=== PATIENT | female | born 1975 | race Caucasian/White ===

== ENCOUNTER 2023-09-23 11:13 | Emergency (ER) | payer MEDICARE, MEDICAID, SELFPAY ==
[2023-09-23 11:32] VITALS: BP 150/92; PULSE 88; RESP 18; TEMP 36.6; O2SAT 97; BMI 33.9
--- NOTE | 2023-09-23 12:03 | ED_ITS ---
HPI - General Adult General: Chief complaint: General Medical Stated complaint: body aches, fever, D Time Seen by Provider: 09/23/23 11:39 Source: patient Mode of arrival: ambulatory Limitations: no limitations History of Present Illness: Patient made her way to the emergency department today because of 2-3 perhaps 4 days history of body aches subjective fevers and loose stools and decreased appetite. She states that symptoms seem to be about as they were upon onset. She states she really does not have much appetite but is drinking fluids and producing urine. She is using [id number] acetaminophen for body aches. She states her grandchildren have had strep as well as the flu over the past 10 days or so. She states she has not been immunized against flu or COVID this year. She states she is able to swallow both liquids and solids okay just has no appetite. She denies cough shortness of breath vomiting. She had a hysterectomy and does use approximately 1 pack of cigarettes daily. Associated symptoms: Deny chest pain, dyspnea, headache(s), nausea, rash, palpitations or vomiting Review of Systems Const: Reports: fever(s), chills and body aches Eyes: Denies: change in vision or eye discharge ENMT: Reports: throat pain; Denies: nasal discharge, nasal congestion or nasal obstruction Card: Denies: chest pain, palpitations, irregular heart rhythm or edema Resp: Denies: dyspnea, productive cough or non-productive cough GI: Reports: diarrhea; Denies: abdominal pain, nausea, vomiting, hematochezia or melena : Denies: flank pain, difficulty voiding, dysuria or urinary frequency Musc: Denies: neck pain, back pain, extremity pain or extremity swelling Skin/Breast: Denies: rash Neuro: Denies: headache(s), numbness in extremities or weakness in extremities Physical Exam Narrative: EXAM NARRATIVE: She appears to be in no acute distress she is comfortable and cooperative. She answers questions appropriately in complete sentences. Const: COMMON NORMALS: no acute distress and patient oriented x3 GENERAL APPEARANCE: cooperative and comfortable NUTRITIONAL APPEARANCE: overweight HENMT: COMMON NORMALS: normocephalic, EAC's normal, TM's normal bilaterally, Normal nasal mucous membranes and turbinates present, moist oral mucous membranes and oropharynx normal HEAD & SCALP: normocephalic FACE & SINUS: normal facial exam and face symmetric NOSE: Normal nasal mucous membranes and turbinates present EXTERNAL AUDITORY CANAL: EAC's normal TYMPANIC MEMBRANE: TM's normal bilaterally Eye: COMMON NORMALS: Equal, round and reactive pupils present, EOMs intact bilaterally and conjunctivae normal CONJUNCTIVA: Yes conjunctivae normal PUPIL: Yes Equal, round and reactive pupils present Neck/C-Spine: COMMON NORMALS: full ROM, no lymphadenopathy and supple Chest: COMMONS NORMALS: normal inspection of the chest Resp: COMMON NORMALS: normal respiratory effort, No retractions, No use of accessory muscles and clear to auscultation bilaterally AUSCULTATION: clear to auscultation bilaterally Cardio: COMMON NORMALS: regular rate, regular rhythm, No murmurs present (Cardio) and Peripheral pulses 2+ throughout RATE: regular rate RHYTHM: regular rhythm PERIPHERAL PULSES: Peripheral pulses 2+ throughout GI: COMMON NORMALS: Normal to inspection, nondistended, normoactive bowel sounds present, Soft to palpation, non-tender and no masses PALPATION: Yes Soft to palpation : COMMON NORMALS: Yes no CVA tenderness BLADDER/KIDNEY EXAM: Yes no CVA tenderness Back/Pelvis: COMMON NORMALS: no CVA tenderness, thoracic and lumbar spine normal to inspection, no thoracic nor lumbar tenderness and thoraco-lumbar ROM normal Extremity: COMMON NORMALS: normal to inspection, full ROM, capillary refill normal, no calf tenderness and no pedal edema Neuro: COMMON NORMALS: patient oriented x3, moves all extremities, no focal mo tor deficits, no sensory deficits noted and gait normal Skin: COMMON NORMALS: no rashes or lesions noted, turgor normal and no jaundice GENERAL SKIN EXAM: no rashes or lesions noted and turgor normal Course Reevaluation(s): Reevaluation #1: I shared results of the testing in the emergency department at this time without any indication of influenza, COVID, strep. She is drinking fluids and appears to be comfortable and we discussed expected course and return precautions which she acknowledged. Time: 13:08 Vital Signs: Vital signs: Vital Signs Temperature 97.9 F 09/23/23 11:32 Pulse Rate 88 09/23/23 11:32 Respiratory Rate 18 09/23/23 11:32 Blood Pressure 150/92 09/23/23 12:05 Pulse Oximetry 97 09/23/23 11:32 Oxygen Delivery Me thod Room Air 09/23/23 11:32 MDM - General Adult Medical Decision Making This patient presented to our emergency department because of several days of body aches malaise decreased appetite, decreased taste and loose stools. She had been exposed to grandchildren who have had various illnesses to include strep. She has been drinking fluids but not eating as normal. She has had no other contributory history such as productive cough, difficulty breathing, abdominal pain, vomiting etc. Clinical exam was reassuring and that she was alert and cooperative. She had moist mucous membranes without any focal findings on her clinical examination that suggest stigmata of serious illness. Testing for COVID influenza and strep were obtained which were all negative and reassuring. Without any other specific symptoms at this time certainly is is consistent with a viral syndrome. We discussed home care, adequate hydration, other home therapy and also return precautions. Stable at this time without any evidence of ongoing emergency medical condition that requires further stabilization and/or ED care Lab Data I reviewed the patient's lab results. Laboratory Results Influenza Type A Ag negative (Negative) 09/23/23 12:01 Influenza Type B Ag negative (Negative) 09/23/23 12:01 SARS-CoV-2 Ag (Rapid) negative (Negative) 09/23/23 12:01 Group A Strep Rapid Negative (Negative) 09/23/23 12:01 No radiology studies performed this visit Discharge Plan Discharge Patient Disposition: Home Clinical Impression: Acute viral syndrome Condition: Stable Prescriptions: No Action ibuprofen 800 mg tablet 800 mg PO TID PRN (Reason: Pain) omeprazole 40 mg capsule,delayed release(DR/EC) 40 mg PO DAILY baclofen 20 mg tablet 20 mg PO TID fluticasone propionate 50 mcg/actuation spray,suspension 2 spray INTRANASAL DAILY rosuvastatin 20 mg tablet 20 mg PO QPM metoprolol tartrate 25 mg tablet 25 mg PO DAILY Discharge Orders: Discharge ED (Routine); Ordered 09/23/23 Ordered By: Pablo Lopez Discharge Diet: Advance as tolerated Discharge Activity: Increase activity as tolerated Patient Instructions: Opioid Safety, Pain Management Activity Restrictions/Additional Instructions: As we discussed all your testing that was performed in the emergency department were reassuring. You likely have one of the other viruses that cause body aches and fever and your other symptoms however we would expect that to gradually improve over the next 2 to 3 days. It is important that you drink adequate amount of fluids to include sports drinks, water, apple juice with water etc. Try to avoid caffeinated beverages as sometimes they can exacerbate any loose stools. It is okay to take your [id number] antidiarrheal agent for the next 2 days. If you have persistent diarrhea develop blood in your diarrhea, start developing new symptoms such as increased abdominal pain inability eat or drink or any other concerns return to the emergency department immediately for reevaluation. Coding Level of Care Code ED Nutritional Assistant for Urszula Nevarez
[2023-09-23 12:05] VITALS: BP 150/92
[2023-09-23 12:36] LABS: Rapid Strep A Test Negative (Negative)
[2023-09-23 12:41] LABS: Influenza A by IFA negative (Negative); Influenza B by IFA negative (Negative); SARS Covid-2 Antigen negative (Negative)
[2023-09-23 13:15] VITALS: BP 150/92; PULSE 71; O2SAT 98
== END 2023-09-23 13:17 | disposition home or self-care (01) ==
PROVIDERS: Emergency Provider Emergency Medicine
DX: B34.9 Viral infection, unspecified (principal); Z11.52 Encounter for screening for COVID-19
CPT/HCPCS: 87081; 87426; 87804; 87880; 99283

== ENCOUNTER → 2023-11-24 08:29 | Outpatient (BNVA) | payer MEDICARE, MEDICAID, SELFPAY | PROVIDERS: PCP Family Medicine; Visit Provider Family Medicine | DX: I10 Essential (primary) hypertension; Z13.9 Encounter for screening, unspecified | CPT/HCPCS: 80053; 80061; 83036; 84439; 84443; 85025 ==

== ENCOUNTER → 2024-02-15 08:35 | Outpatient (BNVA) | payer MEDICARE, MEDICAID, SELFPAY | PROVIDERS: PCP Family Medicine; Referring Provider Family Medicine; Visit Provider Physician Assistant | DX: M25.511 Pain in right shoulder (principal); G89.29 Other chronic pain; M12.811 Other specific arthropathies, not elsewhere classified, right shoulder | CPT/HCPCS: 20610; 73030; 99203; J3301 ==

== ENCOUNTER 2024-02-28 12:17 | Emergency (ER) | payer MEDICARE, MEDICAID, SELFPAY ==
[2024-02-28 12:35] VITALS: BP 119/75; PULSE 69; RESP 16; TEMP 36.7; O2SAT 98
--- NOTE | 2024-02-28 12:54 | XR_ITS ---
WS: [id number] Exam: XR shoulder RT min 2V* [id number] Date/Time of Exam: 02/28/2024 12:54 PM Reason For Exam: pain No fracture or dislocation. Soft tissues are unremarkable. Slight DJD at the AC joint. XR/XR shoulder RT min 2V* [id number] IMPRESSION: 1. Minimal AC joint DJD otherwise negative RIGHT shoulder.
--- NOTE | 2024-02-28 14:46 | W.ED.EXTPRO ---
HPI - Extremity Problem General: Chief complaint: Extremity Injury, Upper Stated complaint: pain in right shoulder Time Seen by Provider: 02/28/24 14:44 Source: patient Mode of arrival: ambulatory Limitations: no limitations History of Present Illness: Patient is a 49-year-old female here in the emergency department for evaluation of worsening right shoulder pain. Patient states 5 years ago she injured this shoulder and subsequently had an MRI which showed a rotator cuff tear. She states she never followed up following this imaging and has continued to have intermittent issues with the shoulder since. Over the past several weeks she has had worsening pain thus was seen by [facility] orthopedics on 02/14. She had a steroid injection into the shoulder which she feels has been non-beneficial. She is continuing to do the home PT exercises she was recommended. She has been taking OTC Tylenol, Ibuprofen, as well as various topical rubs without any form of relief. MD Complaint: joint pain Onset (ago): week(s) Pain Consistency: constant Location: right and upper extremity Quality: burning Radiation: none Relieving factors: nothing and immobilization Exacerbating factors: range of motion Associated symptoms: Reports no associated symptoms; Deny chest pain or fever(s) Context: other (known rotator cuff arthropathy) Review of Systems Const: Denies: fever(s), chills, fatigue or malaise Card: Denies: chest pain Resp: Denies: dyspnea Musc: Reports: joint pain (R shoulder); Denies: neck pain, back pain, extremity pain, extremity swelling, joint swelling, joint redness or joint warmth Neuro: Denies: numbness in extremities, weakness in extremities or sensory changes [facility] ED PFSH: Medical History Schizoaffective disorder Psychiatric care Chronic migraine Tobacco use disorder, severe, dependence Obesity, Class II, BMI 35-39.9 Hypertension Depression Anxiety Bipolar 2 disorder PTSD (post-traumatic stress disorder) Multiple personalities Bone spur History of gallstones Intermittent explosive disorder Surgical History History of amputation of toe H/O: hysterectomy History of cholecystectomy Family History Mother Heart attack Father Aneurysm brain Social History (Reviewed 02/28/24 @ 15:04 by KEZIA Patel Smoking and tobacco/nicotine status: current every day tobacco/nicotine user cigarettes Packs smoked per day: 1.5 Years cigarettes smoked: 35 [ Other cigarette details: 70PY] Alcohol intake: former Year of sobriety/quit date alcohol: 10+ Substance/Drug Use: never Adopted: No Caregiver/support person: No Lives independently: Yes service: No Current occupational exposures/hazards: No Do you think of yourself as: Straight/Heterosexual Current gender identity: Female Female Reproductive History: Spontaneous abortions: No Physical Exam Const: COMMON NORMALS: no acute distress, patient oriented x3, no limitations, alert and well nourished Back/Pelvis: COMMON NORMALS: thoracic and lumbar spine normal to inspection Extremity: COMMON NORMALS: normal to inspection, capillary refill normal, no joint enlargement, no clubbing, cyanosis or edema and no pedal edema GENERAL: Yes normal exam except as noted RIGHT UPPER EXTREMITY: Yes shoulder joint Right shoulder: Yes Right shoulder joint inspection exam (normal gross inspection ), Yes Right shoulder joint ROM exam (limited secondary to pain), Yes Right shoulder joint neurovascular exam (normal) and Yes Right shoulder joint other findings (no concern for septic arthritis following intra-articular injection) Neuro: COMMON NORMALS: patient oriented x3, moves all extremities, no focal motor deficits and no sensory deficits noted SENSORIUM/ORIENTATION: Yes alert Course Vital Signs: Vital signs: Vital Signs Temperature 98.1 F 02/28/24 12:35 Pulse Rate 71 02/28/24 14:56 Respiratory Rate 19 H 02/28/24 14:56 Blood Pressure 125/95 02/28/24 14:56 Pulse Oximetry 98 02/28/24 14:56 Oxygen Delivery Me thod Room Air 02/28/24 14:56 MDM - Extremity (Nontraumatic) Medical Decision Making Patient has seemingly done everything to help with her discomfort including seeing the orthopedic dentist, home physical therapy exercises, intra-articular steroid injections, OTC analgesics as well as topical analgesics all without relief. Patient has an allergy to codeine. Discussed tramadol however she states she has been on this previously without any relief. I was agreeable to a small prescription of hydrocodone that she can use sparingly for severe pain. Told her any other form of pain management needs to be handled by her orthopedic team or her primary care provider. She is agreeable to this. XR of the shoulder was ordered from the waiting room showing AC joint DJD. Medical Records I reviewed the patient's medical records. Lab Data Radiology Impressions Shoulder X-Ray 02/28/24 12:54 IMPRESSION: 1. Minimal AC joint DJD otherwise negative RIGHT shoulder. All radiology interpretation(s) finalized by discharge Discharge Plan Discharge Patient Disposition: Home Clinical Impression: Rotator cuff arthropathy of right shoulder Condition: Stable Prescriptions: New hydrocodone-acetaminophen 5-325 mg tablet 1 tab PO Q6H PRN (Reason: pain) Qty: 14 0RF No Action albuterol sulfate 90 mcg/actuation HFA aerosol inhaler 2 inh inhalation Q4H PRN (Reason: shortness of breath or wheezing) Qty: 6.7 0RF propranolol 20 mg tablet 20 mg PO BID Qty: 180 1RF omeprazole 40 mg capsule,delayed release(DR/EC) 40 mg PO DAILY Qty: 90 3RF losartan 100 mg tablet 100 mg PO DAILY 30 Days Qty: 90 3RF ibuprofen 800 mg tablet 800 mg PO TID PRN (Reason: Pain) Qty: 180 1RF escitalopram oxalate 10 mg tablet 10 mg PO DAILY Qty: 90 3RF methocarbamol 750 mg tablet 750 mg PO TID Qty: 180 2RF mirtazapine 15 mg tablet 15 mg PO DAILY Qty: 30 2RF doxycycline hyclate 100 mg tablet 100 mg PO BID 10 Days Qty: 20 0RF eszopiclone [Lunesta] 3 mg tablet 3 mg PO .at bedtime Qty: 30 5RF epinephrine 0.3 mg/0.3 mL auto-injector See Rx Instructions .ROUTE .COMPLEX Qty: 2 0RF Dose Instruction: INJECT 0.3 MG (0.3 ML) INTRAMUSCULARLY EVERY 4 HOURS NEEDED FOR ANAPHYLAXIS Rx Instructions: INJECT 0.3 MG (0.3 ML) INTRAMUSCULARLY EVERY 4 HOURS NEEDED FOR ANAPHYLAXIS Discharge Orders: Discharge ED (Routine); Ordered 02/28/24 Ordered By: Kayla Armando Referrals: Sachin Helms DO [Primary Care Provider] - Patient Instructions: Opioid Safety, Pain Management Activity Restrictions/Additional Instructions: As we discussed, you need to follow-up with your orthopedic dentist or primary care provider for further treatment of your chronic pain in your right shoulder. Coding Level of Care Code ED [employer] for Urszula Nevarez
[2024-02-28 14:56] VITALS: BP 125/95; PULSE 71; RESP 19; O2SAT 98
== END 2024-02-28 15:07 | disposition home or self-care (01) ==
PROVIDERS: Emergency Provider Physician Assistant; PCP Family Medicine
DX: M12.811 Other specific arthropathies, not elsewhere classified, right shoulder (principal); F17.210 Nicotine dependence, cigarettes, uncomplicated; I10 Essential (primary) hypertension
CPT/HCPCS: 73030; 99283

== ENCOUNTER → 2024-03-22 08:52 | Outpatient (BNVA) | payer MEDICARE, MEDICAID, SELFPAY | PROVIDERS: PCP Family Medicine; Visit Provider Physician Assistant | DX: M12.811 Other specific arthropathies, not elsewhere classified, right shoulder (principal) | CPT/HCPCS: 99213 ==

== ENCOUNTER 2024-04-17 13:35 | Outpatient (CLI) | payer MEDICARE, MEDICAID, SELFPAY ==
--- NOTE | 2024-04-17 15:15 | MR_ITS ---
WS: [id number] MRI RIGHT SHOULDER HISTORY: Right shoulder pain COMPARISON: Radiograph 02/28/2024 TECHNIQUE: Multiplanar sequences of the shoulder joint are submitted. Moderate AC joint arthritis. AC joint is narrowed with osteophytes. Mild encroachment upon the supras pinatus tendon. Moderate subacromial impingement. Small osteophyte along the distal undersurface of t he acromion contacting and deforming the supraspinatus tendon directly over the humeral head. Biceps tendon in normal position. No os acromion. No significant muscle atrophy. There is increased T2 signal along the bursal surface of the distal wyman praspinatus tendon. There is fluid extending interstitially along the tendon sheath over several cent imeters. No articular surface tear is identified. The bursal surface tear is just distal to the acrom ial impingement. Mild cortical humeral interval narrowing. No subacromial tendon or infraspinatus ten don tear. Teres minor normal. No labral tear is seen. MR/MR shoulder RT wo con* [id number] IMPRESSION: 1. Bursal surface tear of the distal supraspinatus tendon. The tear extends in terstitial with fluid along the supraspinatus tendon. The bursal surface tear i s just distal to the subacromial impingement site. 2. No rotator cuff muscle atrophy or edema. 3. Moderate AC joint arthritis. 4. Moderate subacromial impingement.
== END 2024-04-17 13:36 | disposition home or self-care (01) ==
LOC: RAD 13:36
PROVIDERS: PCP Family Medicine; Visit Provider Physician Assistant
DX: S46.011A Strain of muscle(s) and tendon(s) of the rotator cuff of right shoulder, initial encounter (principal); X58.XXXA Exposure to other specified factors, initial encounter; M19.011 Primary osteoarthritis, right shoulder; M25.711 Osteophyte, right shoulder; M75.41 Impingement syndrome of right shoulder
CPT/HCPCS: 73221

== ENCOUNTER → 2024-05-14 09:04 | Outpatient (BNVA) | payer MEDICARE, OTHER, SELFPAY | PROVIDERS: PCP Family Medicine; Visit Provider Student in an Organized Health Care Education/Training Program | DX: M24.611 Ankylosis, right shoulder (principal); M75.21 Bicipital tendinitis, right shoulder; M75.41 Impingement syndrome of right shoulder; M19.011 Primary osteoarthritis, right shoulder | CPT/HCPCS: 99214 ==

== ENCOUNTER 2024-06-05 11:23 | Day surgery (SDC) | payer MEDICARE, MEDICAID, SELFPAY ==
[2024-06-05] VITALS (7 sets, daily range): BP systolic 113–157; BP diastolic 69–93; PULSE 74–100; RESP 13–24; TEMP 36.2–36.8; O2SAT 92–100; BMI 38.7
[2024-06-05] MEDS: sodium chloride 0.9% 1,000 ML 30 ML IV (13:03)
[2024-06-05] MEDS: acetaminophen 1,000 MG/100 ML PIGGYBACK 400 MG IV (13:06)
[2024-06-05] MEDS: ketorolac 30 mg/mL INJ IVP (13:06)
[2024-06-05] MEDS: scopolamine 1.5 Patch 1 PATCH TRANSDERMA (13:07)
--- NOTE | 2024-06-05 13:09 | W.PM.OPSUD ---
Surgery/Procedure H&P Update DATE OF PROCEDURE: June 05, 2024 DATE H&P PERFORMED: 05/14/24 H&P UPDATE INFORMATION: I have reviewed H&P completed within last 30 days, I have examined patient prior to procedure and No changes to prior documentation PREOP DIAGNOSIS: Right shoulder arthrofibrosis, biceps tendinitis, AC joint arthritis, rotat PRIMARY INDICATION FOR PROCEDURE: Right shoulder arthrofibrosis, biceps tendinitis, AC joint arthritis, rotator cuff impingement syndrome/subacromial impingement PLANNED PROCEDURE: Operation Date: 06/05/24 14:15 Proposed Procedures p Shoulder Arthroscopy(Right) - DO ruiz Bowman Manipulation Under Anesthesia Shoulder Manipulation(Right) - DO ruiz Bowman AC Joint Resection(Right) - DO ruiz Bowman Subacromial Decompression(Right) - DO ruiz Bowman Rotator Cuff Repair - Arthroscopy debridement vs repair(Right) - DO ruiz Bowman Bicep Tenotomy versus tenodesis(Right) - Lucio Hung DO
--- NOTE | 2024-06-05 14:00 | ANES.PROC ---
Anesthesia Procedures Procedure/Date: 06/05/24 Nerve Block ^: Nerve Block 1: Main Anesthesia: other (Fentanyl 100 mcg, Versed 2 mg given prior to block) Time Out Performed: Yes Consent: requested by attending/covering physician and from patient Nerve block location: interscalene Anesthesia monitors applied: pulse oximetry, EKG, BP cuff and oxygen Nerve block position: semi sitting Anesthetic Used: ropivicaine 0.5% Amount of anesthesia used (mL): 25 Ultrasound used to: recognize landmarks Nerve Stimulator Used?: Yes Interscalene/Femoral BLK: other needle (pjunk) Injection: neg aspiration of heme Patient Tolerated Procedure: well Complications: none Additional Comments: Decadron 4 mg added to block
--- NOTE | 2024-06-05 14:02 | P.ANESASSM_ITS ---
Pre-Anesthetic Assessment Height/Weight: Height 5 ft 6 in Weight 240 lb Temp Pulse Resp BP Pulse Ox O2 Del Method 98.3 F 100 17 129/80 94 Room Air 06/05/24 12:47 06/05/24 12:47 06/05/24 12:47 06/05/24 12:47 06/05/24 12:47 06/05/24 12:48 Preop Diagnosis: Right shoulder arthrofibrosis, biceps tendinitis, AC joint arthritis, rotat Operation Date: 06/05/24 14:15 Proposed Procedures p Shoulder Arthroscopy(Right) - Lucio Anabell, DO s Manipulation Under Anesthesia Shoulder Manipulation(Right) - Lucio Anabell, DO s AC Joint Resection(Right) - Lucio Anabell, DO s Subacromial Decompression(Right) - Lucio [place], DO s Rotator Cuff Repair - Arthroscopy debridement vs repair(Right) - Lucio [place], DO s Bicep Tenotomy versus tenodesis(Right) - Lucio [place], DO Last intake: Intake Last Liquid Date 06/04/24 Last Liquid Time 18:00 Last Solid Date 06/04/24 Last Solid Time 18:00 Social Tobacco and No alcohol Exam alert, oriented x 3, clear to auscultation bilaterally and regular rate & rhythm Airway Submandibular: within normal limits Cervical ROM: within normal limits Mallampati: Class III Comments: Comments: Multiple missing back molars Anesthetic Plan ASA status: 2 Anesthesia: General Other: Patient reports waking up during anesthesia. Per further review, patient remembers being awake prior to going to sleep but no actual IntraOp awareness N.p.o. since midnight Current smoker, occasional inhaler use Hypertension, on losartan and propranolol GERD, controlled with meds METs greater than 4 Plan for general anesthesia with peripheral nerve block Medications/Allergies Home Medications Medication Instructions Recorded Confirmed Last Taken Type albuterol sulfate 90 mcg/actuation 2 inh inhalation Q4H PRN shortness 10/20/23 06/04/24 Unknown Rx aerosol inhaler of breath or wheezing #6.7 grams ibuprofen 800 mg tablet 800 mg PO TID PRN Pain #180 tabs 01/11/24 06/04/24 Unknown Rx losartan 100 mg tablet 100 mg PO DAILY 30 days #90 tabs 01/11/24 06/04/24 06/03/24 Rx methocarbamol 750 mg tablet 750 mg PO TID #180 tabs 01/11/24 06/04/24 06/03/24 Rx omeprazole 40 mg capsule,delayed 40 mg PO DAILY #90 caps 01/11/24 06/04/24 06/03/24 Rx release propranolol 20 mg tablet 20 mg PO BID #180 tabs 01/11/24 06/05/24 06/05/24 Rx epinephrine 0.3 mg/0.3 mL See Rx Instructions .Route 05/13/24 06/04/24 Unknown Rx injection, auto-injector .COMPLEX #2 ea promethazine 25 mg tablet 25 mg PO TID PRN nausea and 05/13/24 06/04/24 Unknown Rx vomiting #30 tabs alprazolam 0.25 mg tablet 0.25 mg PO DAILY PRN anxiety 30 05/14/24 06/04/24 06/03/24 Rx days #10 tabs dextroamphetamine-amphetamine 10 10 mg PO DAILY 30 days #30 tabs 05/14/24 06/04/24 06/03/24 Rx mg tablet (Adderall) mirtazapine 30 mg tablet 30 mg PO .qhs 30 days #30 tabs 05/14/24 06/04/24 06/03/24 Rx ondansetron 4 mg disintegrating 4 mg PO Q8H PRN nausea and 06/05/24 Unknown Rx tablet vomiting 3 days #9 tabs Allergies Allergy/AdvReac Type Severity Reaction Status Date / Time bee venom protein (honey bee) Allergy Severe ALGY-Anaphy Verified 06/05/24 12:43 laxis codeine Allergy Severe Stops my Verified 06/05/24 12:43 heart clindamycin Allergy Intermediate hives Verified 06/05/24 12:43 cephalexin [From Keflex] Allergy Unknown Verified 06/05/24 12:43 Sulfa (Sulfonamide Allergy Unknown Verified 06/05/24 12:43 Antibiotics) Current Medications Generic Name Dose Route Start Last Admin Trade Name Freq PRN Reason Stop Dose Admin Sodium Chloride 1,000 mls @ 30 mls/hr 06/05/24 12:45 06/05/24 13:03 Sodium Chloride 0.9% IV 06/06/24 12:44 30 mls/hr .Q24H GISELLE Administration PFSH Anesthesia Medical History Schizoaffective disorder Psychiatric care Chronic migraine Tobacco use disorder, severe, dependence Obesity, Class II, BMI 35-39.9 Hypertension Depression Anxiety Bipolar 2 disorder PTSD (post-traumatic stress disorder) Multiple personalities Bone spur History of gallstones Intermittent explosive disorder Surgical History History of amputation of toe H/O: hysterectomy History of cholecystectomy Family History Mother Heart attack Father Aneurysm brain Social History Smoking and tobacco/nicotine status: never used tobacco/nicotine Alcohol intake: former Year of sobriety/quit date alcohol: 10+ Substance/Drug Use: never Adopted: No Caregiver/support person: No Lives independently: Yes service: No Current occupational exposures/hazards: No Do you think of yourself as: Straight/Heterosexual Current gender identity: Female Female Reproductive History Spontaneous abortions: No Data Anesthesia Cardiac Studies: No Data to Display
[2024-06-05] MEDS: vancomycin 1,500 MG/300 ML PIGGYBACK 200 MG IV (15:12)
[2024-06-05] MEDS: EPINEPHrine 1 mg/mL INJ 2 MG XX (15:55)
--- NOTE | 2024-06-05 16:49 | P.BOP_ITS ---
Date of Procedure: [June 05, 2024] Surgeon: [Dr. Hung DO] Chemical Plant Technical Director(s): [Nima Hung PA-C] Procedure(s) performed: [Right shoulder diagnostic and surgical arthroscopy Manipulation under anesthesia AC joint resection Subacromial decompression Rotator cuff debridement Biceps tenodesis Labral debridement] Findings of the procedure(s): [Right shoulder biceps tendinitis and SLAP tear, partial bursal sided rotator cuff tear (10 to 15%), AC joint arthritis, subacromial bursitis, glenohumeral joint arthritis grade 2] Estimated blood loss: [5 mL] Specimen(s) removed: [N/A] Post-operative diagnosis: [Right shoulder biceps tendinitis and SLAP tear, partial bursal sided rotator cuff tear (10 to 15%), AC joint arthritis, subacromial bursitis, glenohumeral joint arthritis grade 2]
--- NOTE | 2024-06-05 16:55 | PM.PACU ---
PACU note Narrative: Patient is a 49-year-old female that just underwent right shoulder diagnostic and surgical arthroscopy. Patient transferred to PACU in stable condition. Pain is well controlled. shoulder Dressing on , dry and in place. Patient's operative arm is in a shoulder immobilizer. Patient is awake and alert and able to respond to my questions accordingly. Patient's fingers are warm with good perfusion. Normal cap refill under 2 seconds. Unable to assess further range of motion in arm due to sling. Unable to assess sensation and motor function due to residual block. Exam: awake Disposition: discharged
--- NOTE | 2024-06-05 17:01 | SUR.PHASEI ---
Patient doing great, moving to OPS now as same RN will be monitoring her there.
--- NOTE | 2024-06-05 17:29 | P.OP_ITS ---
Operative Report Date of procedure: June 05, 2024 Surgeon: Lucio Hung DO Flasher Adjuster: Nima Hung PA-C: PA was necessary for assistance in this case with shoulder positioning to execute the procedure, assistance with instrumentation, as well as implant fixation when necessary, assist with wound closure and dressing application. Procedure: Preoperative diagnosis: Right shoulder arthrofibrosis, biceps tendinitis, AC joint arthritis, rotator cuff impingement syndrome/subacromial impingement Post-op diagnosis: Right shoulder biceps tendinitis and SLAP tear, partial bursal sided rotator cuff tear (10 to 15%), AC joint arthritis, subacromial bursitis, glenohumeral joint arthritis grade 2 Procedure done: Right shoulder examination and manipulation under anesthesia Right?shoulder?diagnostic and surgical?arthroscopy with?rotator cuff debridement Right?shoulder?diagnostic and surgical?arthroscopy biceps tenodesis Right?shoulder?diagnostic and surgical?arthroscopy labral debridement Right?shoulder?diagnostic and surgical?arthroscopy acromioclavicular joint resection Right?shoulder?diagnostic and surgical?arthroscopy subacromial decompression (acromioplasty and bursectomy) Surgeon: Lucio Hung DO Estimated blood loss: 5mL IV fluids: See anesthesia record Implants: Arthrex 4.75 BC biceps tenodesis loop and tack system Complications: None Condition: stable Disposition: same day Brief History: Patient been seen and worked up in the outpatient setting for?right?shoulder?pain.? Pt had an MRI which showed findings below.? Patient's failed conservative treatment and has weakness.? We talked about treatment options far as nonoperative and operative intervention..? We talked about risk benefits complication alternatives surgical nonsurgical treatment options.? Understanding risk of surgery he agrees to proceed with surgical intervention.? All questions have been answered at this time.? Patient elects proceed with surgery for right shoulder examination under anesthesia with possible manipulation, right shoulder diagnostic and surgical arthroscopy with AC joint resection, subacromial decompression, rotator cuff debridement versus repair, possible bicep tenotomy versus tenodesis MR/MR shoulder RT wo con* [id number] IMPRESSION: 1. Bursal surface tear of the distal supraspinatus tendon. The tear extends interstitial with fluid along the supraspinatus tendon. The bursal surface tear is just distal to the subacromial impingement site. 2. No rotator cuff muscle atrophy or edema. 3. Moderate AC joint arthritis. 4. Moderate subacromial impingement. Procedure: Patient seen evaluated in the preoperative holding area.? Consent reviewed and signed with patient.? Once again reviewed patient's MRI results as well as? planned surgical intervention.? Correct extremity marked.? Patient seen evaluated by anesthesia department received regional anesthesia.? Once ready for surgery was taken back to the operative suite.? Patient then subsequently underwent anesthesia per the anesthesia department was transported onto the OR table.? Patient was then placed into a lateral decubitus position with a beanbag and was appropriately secured to the bed.? All bony prominences well-padded.? Patient then had the?right?upper extremity was then prepped and draped in standard orthopedic fashion.? Patient received appropriate preoperative antibiotics.? Final timeout performed. Prior to the procedure I then subsequently performed examination under anesthesia. First I assessed patient's planes of motion forward flexion patient was able to forward flex much increased from the office now the patient was relaxed but had endpoint at roughly 160 degrees patient's internal rotation was limited to 10 degrees patient's external rotation of 90 degrees patient then subsequently under a short lever arm as well as stabilizing the shoulder and scapula underwent a standard slow manipulation under anesthesia of the right shoulder with subtle crepitus and release of the glenohumeral joint. Able to achieve full flexion of 180 degrees internal rotation was improved to roughly 65 degrees internal rotation as well as external rotation was increased to 110 degrees. This completed my manipulation under anesthesia. I then proceeded with shoulder arthroscopy. The?right?upper extremity was then held in hanging from traction utilizing sterile technique.? Next started with standard diagnostic and surgical?arthroscopy with posterior portal position introduced?arthroscope into the glenohumeral joint.? Visualized the glenohumeral joint I then introduced a spinal needle within the rotator cuff interval to confirm appropriate anterior portal placement.? Once this was confirmed I then made my small incision and then introduced my?arthroscopic shaver into the glenohumeral joint.? After flushing the joint fluid, was clearly evident patient had biceps tendon tearing as well as Superior labral tear. Patient had appreciable unstable biceps anchor most pronounced in the superior labrum. Given there appears to be healthy intra-articular tendon plan was for an intra-articular biceps tenodesis at the superior portion as it enters the intertubercular groove. Given with tenodesis I still would allow patient with early range of motion and given I am worried with her about arthrofibrosis postoperatively if we had to perform any repairs this will still accommodate for earlier range of motion just limitations on weightbearing as result elected to proceed with bicep tenodesis. Thermal wand introduced into the rotator interval. I then release of the rotator interval to have appropriate visualization and the ability to perform biceps tenodesis. At this point I established a purple passport cannula which was introduced. Next I performed an Arthrex loop and tap biceps tenodesis. Passer was then made around the tendon luggage tag stitch around and then thru the tendon per Arthrex protocol, I then utilized a thermal wand to release the biceps tendon at the anchor to perform with tenotomy. I then loaded with suture onto an Arthrex 4.75 swivel lock suture anchor. A punch was then placed in appropriate position at the entry point into the intertubercular groove just superior to the subscapularis tendon. Punch was then introduced to the appropriate depth. The suture loaded on the swivel lock was then advanced held under appropriate tension and shoulder lock anchor was then advanced and had excellent fixation. Excess suture was then cut biceps tenodesis was complete. I then utilized a thermal wand to seal the edges of the superior labrum. Next I evaluated the subscapularis tendon which was intact and no evidence of tear. ?Next there was significant labral tearing at biceps anchor and circumferential.? ? I then subsequently utilized a a?arthroscopic shaver and thermal wand to perform a labral debridement.? This point time I then visualized the glenohumeral joint.? The glenohumeral joint was found to have grade 2? chondromalacia throughout.? Axillary pouch was free of loose bodies from viewing the posterior portal.? Next a visualized the rotator cuff superiorly and there was found to be a intact with no evidence of tear. Negative escape bubble sign.? ? This completed my work within the glenohumeral joint all fluid was suctioned free of the joint.? ?Next I reintroduced the?arthroscope posteriorly.? And went to the subacromial space.? I established my lateral working portal. Thermal wand was then introduced laterally and then I subsequently performed extensive bursectomy of the subacromial space.? Patient had a large anterior bone spur.? At this point time I proceeded with my AC joint resection thermal wand was used and track to the anterior edge of the acromion and then tracked all the way to the AC joint.? Once identified the AC joint this was very arthritic in nature.? Thermal wand was placed anteriorly to establish appropriate plane for AC joint resection.? Once appropriate margins and anterior inferior and anterior capsule was released I then introduced?arthroscopic shaver and a bur and performed AC joint resection of both the acromion to cope plane at the AC joint and a distal clavicle resection was then performed totaling 1 cm in size and was confirmed.? This completed my AC joint resection and I then introduced the?arthroscopic shaver laterally while continuing to view posteriorly.? I then performed an acromioplasty to complete my subacromial decompression prior to evaluating rotator cuff. After extensive bursectomy it was evident patient had a partial bursal sided tear of the rotator cuff. This was found only being roughly 10 to 15% and at more of the musculotendinous portion. As result I subsequently utilized an arthroscopic shaver and gently debrided the rotator cuff at this area to stimulate appropriate bleeding and healing there was no evidence of full- thickness tear throughout the rest of the rotator cuff on examination I did visualize this from the posterior and lateral portal and once again no evidence of rotator cuff was found. Next I then introduced the?arthroscopic shaver posteriorly to complete my subacromial decompression appropriate complaining all the way up to the lateral edge of the acromion.? This completed the surgery.? All fluid was suctioned from the?shoulder.? All instruments were removed.? The lateral incision was then closed with nylon stitches.? As well as the portal sites closed with portal nylon stitches.? Xeroform 4 x 4's ABD and tape was then applied to the?righ t?shoulder?and was placed into a?shoulder?abduction pillow sling for bicep tenodesis.? Patient was then awakened from anesthesia and then taken back to PACU in stable condition.? Patient tolerated procedure without any issues. Disposition: Patient taken back in stable condition recovering well.? Dressings on in place clean dry and intact.? Will be nonweightbearing to the?right?upper extremity.? Follow bicep tenodesis protocol.? Patient to follow-up with orthopedics in the office in 2 weeks.? Patient will receive appropriate discharge instruction as well as pain medication postoperatively.? All questions answered.? We will contact the office for any questions or concerns.
== END 2024-06-05 17:50 | disposition home or self-care (01) ==
PROVIDERS: PCP Family Medicine; Visit Provider Student in an Organized Health Care Education/Training Program
PROC: (CPT 29805; principal; 2024-06-05 14:05)
PROC: (CPT 29823; 2024-06-05 14:05)
PROC: 0RSG0ZZ Reposition Right Acromioclavicular Joint, Open Approach (ICD-10-PCS; CPT 29823; 2024-06-05 14:05)
PROC: (CPT 29826; 2024-06-05 14:05)
PROC: (CPT 29827; 2024-06-05 14:05)
PROC: (CPT 24310; 2024-06-05 14:05)
DX: S43.431A Superior glenoid labrum lesion of right shoulder, initial encounter (principal); M75.21 Bicipital tendinitis, right shoulder; M75.101 Unspecified rotator cuff tear or rupture of right shoulder, not specified as traumatic; M19.011 Primary osteoarthritis, right shoulder; M75.51 Bursitis of right shoulder; F17.200 Nicotine dependence, unspecified, uncomplicated; I10 Essential (primary) hypertension; K21.9 Gastro-esophageal reflux disease without esophagitis; M75.41 Impingement syndrome of right shoulder; Y99.9 Unspecified external cause status
CPT/HCPCS: 29823; 29824; 29826; 29828; C1713; J0131; J0171; J1885; J2405; J2704; J3370; J7030

== ENCOUNTER → 2024-06-18 14:56 | Outpatient (BNVA) | payer MEDICARE, MEDICAID, SELFPAY | PROVIDERS: PCP Family Medicine; Visit Provider Physician Assistant | DX: Z98.890 Other specified postprocedural states (principal) | CPT/HCPCS: 99024 ==

== ENCOUNTER 2024-06-24 06:00 | Outpatient (RCR) | payer MEDICARE, MEDICAID, SELFPAY | END 2024-07-01 23:59 | disposition home or self-care (01) | LOC: GPT 06:00 | PROVIDERS: PCP Family Medicine; Visit Provider Physician Assistant | DX: Z98.890 Other specified postprocedural states (principal) | CPT/HCPCS: 97110; 97161 ==

== ENCOUNTER 2024-07-02 06:00 | Outpatient (RCR) | payer MEDICARE, MEDICAID, SELFPAY | END 2024-08-01 23:59 | disposition home or self-care (01) | LOC: GPT 06:00 | PROVIDERS: PCP Family Medicine; Visit Provider Physician Assistant | DX: Z98.890 Other specified postprocedural states (principal) | CPT/HCPCS: 97110; 97140; 97530 ==

== ENCOUNTER → 2024-08-15 08:04 | Outpatient (BNVA) | payer MEDICARE, SELFPAY | PROVIDERS: PCP Family Medicine; Visit Provider Physician Assistant | DX: Z98.890 Other specified postprocedural states (principal) | CPT/HCPCS: 99024 ==

== ENCOUNTER 2024-10-10 11:38 | Outpatient (CLI) | payer MEDICARE, SELFPAY ==
--- NOTE | 2024-10-10 11:44 | XR_ITS ---
WS: [id number] Chest 2 views, 10/10/2024 Clinical Data: ongoing cough, congestion, and pain with inspiration Comparison: Two-view chest, 11/15/2007. Findings: No nodules, masses or effusions are seen. The heart is normal. The pulmonary vascularity is not increased. No pneumonia or pneumothorax is seen. The diaphragms are flattened. There are cholecy stectomy clips in the right upper quadrant. XR/XR chest 2V* [id number] Impression: Hyperinflation.
== END 2024-10-10 11:39 | disposition home or self-care (01) ==
LOC: RAD 11:43
PROVIDERS: PCP Family Medicine; Visit Provider Emergency Medicine
DX: J18.9 Pneumonia, unspecified organism (principal); Z90.49 Acquired absence of other specified parts of digestive tract; R93.89 Abnormal findings on diagnostic imaging of other specified body structures
CPT/HCPCS: 71046

== ENCOUNTER → 2024-10-28 09:31 | Outpatient (BNVA) | payer MEDICARE, MEDICAID, SELFPAY | PROVIDERS: PCP Family Medicine; Visit Provider Family Medicine | DX: E55.9 Vitamin D deficiency, unspecified (principal); I10 Essential (primary) hypertension; E78.2 Mixed hyperlipidemia; F31.81 Bipolar II disorder; R79.89 Other specified abnormal findings of blood chemistry | CPT/HCPCS: 80053; 80061; 82306; 82607; 84439; 84443; 85025 ==

== ENCOUNTER 2024-11-04 09:09 | Outpatient (CLI) | payer MEDICARE, MEDICAID, SELFPAY ==
--- NOTE | 2024-11-04 10:00 | CT_ITS ---
WS: [id number] CT HEAD NONCONTRAST HISTORY: I67.1 - Cerebral aneurysm, nonruptured TECHNIQUE: Contiguous axial imaging performed through the brain. Bone and soft tissue windows. Sagitt al and coronal reformats reviewed. All CT scans at [facility] use at least one of these dose optimization techniques: automated exposure control; mA and/or kV adjustment per patient size (includ es targeted exams where dose is matched to clinical indication); or iterative reconstruction. DLP: 980.40 mGy.cm COMPARISON: None available. No acute intracranial hemorrhage, midline shift or mass effect. Deep cortical sulcus LEFT temporal lo be. Also noted on a prior MRI from 2010. There is a tiny lacunar infarct in the LEFT caudate head. Pe rivascular space along the LEFT inferior basal ganglia. Minimal volume loss. No large territory infar ct. Ventricles: Normal size with no hydrocephalus. No inferior displacement of the cerebellar tonsils. Paranasal sinuses: As visualized are clear. Mastoid air cells: Well pneumatized. Calvarium and scalp: Skull is intact with no soft tissue edema or swelling. CT/CT head wo con* [id number] IMPRESSION: 1. No acute intracranial hemorrhage or edema. 2. Minimal volume loss and atrophy. 3. Tiny lacunar infarct LEFT caudate head.
== END 2024-11-04 09:10 | disposition home or self-care (01) ==
PROVIDERS: PCP Family Medicine; Visit Provider Family Medicine
DX: I67.1 Cerebral aneurysm, nonruptured (principal); R93.0 Abnormal findings on diagnostic imaging of skull and head, not elsewhere classified
CPT/HCPCS: 70450

== ENCOUNTER → 2024-11-26 09:25 | Outpatient (BNVA) | payer MEDICARE, SELFPAY | PROVIDERS: PCP Family Medicine; Visit Provider Physician Assistant | DX: M79.671 Pain in right foot (principal); M79.672 Pain in left foot; Z98.890 Other specified postprocedural states | CPT/HCPCS: 99213 ==

== ENCOUNTER → 2024-12-05 08:53 | Outpatient (BNVA) | payer MEDICARE, SELFPAY | PROVIDERS: PCP Family Medicine; Visit Provider Podiatrist Foot & Ankle Surgery | DX: M79.671 Pain in right foot (principal); M79.672 Pain in left foot; M72.2 Plantar fascial fibromatosis | CPT/HCPCS: 73630; 99203 ==

== ENCOUNTER → 2025-02-04 07:33 | Outpatient (BNVA) | payer MEDICARE, MEDICAID, SELFPAY | PROVIDERS: PCP Family Medicine; Referring Provider Family Medicine; Visit Provider Psychiatry & Neurology Neurology | DX: M54.81 Occipital neuralgia (principal); G43.019 Migraine without aura, intractable, without status migrainosus | CPT/HCPCS: 99203 ==

== ENCOUNTER → 2025-02-11 16:11 | Outpatient (BNVA) | payer MEDICARE, MEDICAID, SELFPAY | PROVIDERS: PCP Family Medicine; Visit Provider Registered Nurse Neonatal Intensive Care | DX: M79.642 Pain in left hand (principal) | CPT/HCPCS: 73130 ==

== ENCOUNTER 2025-03-25 09:38 | Emergency (ER) | payer MEDICARE, MEDICAID, SELFPAY ==
[2025-03-25 09:51] VITALS: BP 122/80; PULSE 89; RESP 17; TEMP 36.6; O2SAT 95; BMI 41.9
--- NOTE | 2025-03-25 12:58 | ED_ITS ---
HPI - Back Pain/Injury General: Chief Complaint: Back Pain/Injury Stated Complaint: fell-back pain Time Seen by Provider: 03/25/25 09:46 Source: patient Mode of arrival: ambulatory Limitations: no limitations History of Present Illness: Patient is a 50-year-old female presents to ED today with complaint of lower back pain. Patient states she slipped and fell 2 days ago and landed onto her back and has had lower back pain since. She denies pain radiating into her buttocks or down her lower extremities. She is not complaining of bowel or bladder incontinence/retention. She is ambulatory here without difficulty or assistance. MD elicited complaint: back pain Onset (ago): day(s) Timing: constant Severity: moderate Similar Symptoms Previously: No Location: lumbar spine Radiation: none Relieving factors: none Context: fall Associated symptoms: Deny abdominal pain, chills, change in bowel habits, dysuria, fatigue, fever(s), urinary urgency or vomiting Related Data Home Medications ?Medication ?Instructions ?Recorded ?Confirmed methocarbamol 750 mg tablet 750 mg PO TID 01/24/2502/23 Previous Rx's ?Medication ?Instructions ?Recorded epinephrine 0.3 mg/0.3 mL See Rx Instructions .Route 0 05/13/24 injection, auto-injector .COMPLEX #2 ea ibuprofen 800 mg tablet 800 mg PO TID PRN Pain #180 tabs 07/11/24 mirtazapine 30 mg tablet 30 mg PO .qhs 30 days #30 ta bs 11/12/24 cholecalciferol (vitamin D3) 50 50 mcg PO DAILY #90 ca ps 01/24/25 mcg (2,000 unit) capsule losartan 100 mg tablet 100 mg PO DAILY 30 days #90 tabs 01/24/25 metoprolol tartrate 25 mg tablet 25 mg PO BID #180 tab s 01/24/25 omeprazole 40 mg capsule,delayed 40 mg PO DAILY #90 ca ps 01/24/25 release alprazolam 0.5 mg tablet 0.5 mg PO DAILY PRN anxiety #30 02/04/25 tabs galcanezumab-gnlm 120 mg/mL 240 mg (2 mL) SUBCUT ONCE #2 mL 02/04/25 subcutaneous pen injector (Emgality Pen) miscellaneous medical supply 1 ea miscellaneous DAILY PRN pain 02/11/25 #1 ea dextroamphetamine-amphetamine 10 10 mg PO BID 30 days #60 tabs 02/14/25 mg tablet (Adderall) galcanezumab-gnlm 120 mg/mL 120 mg SUBCUT Q30D #1 mL 0 02/19/25 subcutaneous pen injector (Emgality Pen) tramadol 50 mg tablet 50 mg PO BID PRN pain #14 ta bs 03/06/25 diazepam 10 mg tablet 20 mg (2 x 10 mg) PO ONCE CT N 03/25/25 anxiety #2 tabs Allergies Allergy/AdvReac Type Severity Reaction Status Date / Time bee venom protein (honey bee) Allergy Severe ALGY-Anaphy Verified 03/06/25 14:29 laxis codeine Allergy Severe Stops my Verified 03/06/25 14:29 heart clindamycin Allergy Intermediate hives Verified 03/06/25 14:29 cephalexin (From Keflex) Allergy Unknown Verified 03/06/25 14:29 Sulfa (Sulfonamide Allergy Unknown Verified 03/06/25 14:29 Antibiotics) Review of Systems Const: Denies: fever(s), chills, body aches, fatigue or malaise Card: Denies: chest pain Resp: Denies: dyspnea GI: Denies: abdominal pain, vomiting, diarrhea or change in bowel habits : Denies: flank pain, difficulty voiding, dysuria, urinary frequency, urinary urgency or urinary hesitancy Musc: Reports: back pain; Denies: neck pain, extremity pain, extremity swelling, joint swelling or limited range of motion PFSH ED PFSH: Medical History Lacunar infarction old, tiny, on head CT Screening for lung cancer LDCT ordered 4..25 Nicotine dependence, cigarettes, with other nicotine-induced disorders GERD (gastroesophageal reflux disease) Bee sting-induced anaphylaxis Schizoaffective disorder Psychiatric care Chronic migraine to see neuro Obesity, Class II, BMI 35-39.9 Hypertension Depression Anxiety Bipolar 2 disorder PTSD (post-traumatic stress disorder) Multiple personalities Intermittent explosive disorder Surgical History Hx of arthroscopy of right knee Hx of rotator cuff surgery Right 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; L big toe--tip removed H/O: hysterectomy with BSO; done for cysts but says she had cervical cancer--no other tx, just surgery History of cholecystectomy Family History Mother Heart attack Father Aneurysm brain Other Diabetes mellitus, type 2 Heart disease Social History Smoking and tobacco/nicotine status: current every day tobacco/nicotine user cigarettes Packs smoked per day: 1.5 [ Other cigarette details: started age 10; ] Alcohol intake: former Year of sobriety/quit date alcohol: 10+ Substance/Drug Use: never Adopted: No Caregiver/support person: No Lives independently: Yes Household members: significant other Marital status: Life Partner Marital status details: lives with lesbian life partner Number of children: 1 Highest education level completed: 5th Grade service: No Current occupational status: disabled Current occupational exposures/hazards: No Previous occupational history: on disability for back Do you think of yourself as: Lesbian/Benavidez/Homosexual Current gender identity: Female Female Reproductive History: Spontaneous abortions: No Physical Exam Const: COMMON NORMALS: no acute distress, no limitations, alert and well nourished GENERAL APPEARANCE: cooperative NUTRITIONAL APPEARANCE: obese (BMI 42) ORIENTATION/CONSCIOUSNESS: Yes awake, Yes oriented to person, Yes oriented to place and Yes oriented to time : COMMON NORMALS: Yes no CVA tenderness BLADDER/KIDNEY EXAM: Yes no CVA tenderness Back/Pelvis: COMMON NORMALS: no CVA tenderness THORACIC SPINE/UPPER BACK: No thoracic spinal tenderness LUMBAR SPINE/LOWER BACK: Yes lumbar spinal tenderness, No paraspinal muscle tenderness, No paraspinal muscle spasm and No mass present PELVIS: Yes buttocks normal SACROILIAC JOINTS: Yes SI joints normal SACRUM: no tenderness COCCYX: no tenderness Extremity: GENERAL: Yes normal exam except as noted Neuro: COMMON NORMALS: moves all extremities, no focal motor deficits, no sensory deficits noted and gait normal SENSORIUM/ORIENTATION: Yes alert, Yes oriented to person, Yes oriented to place and Yes oriented to time MOTOR EXAM: 5/5 motor strength present throughout Skin: COMMON NORMALS: no rashes or lesions noted GENERAL SKIN EXAM: no rashes or lesions noted Course Vital Signs: Vital signs: Vital Signs Temperature 97.9 F 03/25/25 09:51 Pulse Rate 89 06/24/25 09:51 Respiratory Rate 17 03/25/25 09:51 Blood Pressure 122/80 03/25/25 09:51 Pulse Oximetry 95 03/25/25 09:51 Oxygen Delivery Me thod Room Air 03/25/25 09:51 MDM - Back Pain/Injury Medical Decision Making XR showing no acute fractures. She already takes 800mg Ibuprofen and Methocarbamol so she can continue these. She was given Dexamethasone here. Recommend conservative therapies at home and she can follow up with primary care if symptoms are not improving. Medical Records I reviewed the patient's medical records. Labs I reviewed the patient's lab results. Radiology Impressions Lumbar Spine X-Ray 03/25/25 13:09 IMPRESSION: 1. No fracture or malalignment. Degenerative changes. All radiology interpretation(s) finalized by discharge Discharge Plan Discharge Patient Disposition: Home Clinical Impression: Acute lumbar back pain Qualifiers: Back pain laterality: midline Sciatica presence: without sciatica Qualified Code(s): M54.50 - Low back pain, unspecified Condition: Stable Prescriptions: No Action epinephrine 0.3 mg/0.3 mL auto-injector See Rx Instructions .ROUTE .COMPLEX Qty: 2 2RF Dose Instruction: INJECT 0.3 MG (0.3 ML) INTRAMUSCULARLY EVERY 4 HOURS NEEDED FOR ANAPHYLAXIS Rx Instructions: INJECT 0.3 MG (0.3 ML) INTRAMUSCULARLY EVERY 4 HOURS NEEDED FOR ANAPHYLAXIS mirtazapine 30 mg tablet 30 mg PO .qhs 30 Days Qty: 30 5RF alprazolam 0.5 mg tablet 0.5 mg PO DAILY PRN (Reason: anxiety) Qty: 30 3RF Emgality Pen 120 mg/mL pen injector 240 mg SUBCUT ONCE Qty: 2 0RF Rx Instructions: Loading dose miscellaneous medical supply Misc 1 ea miscellaneous DAILY PRN (Reason: pain) Qty: 1 0RF Rx Instructions: application of medium left thumb spica ibuprofen 800 mg tablet 800 mg PO TID PRN (Reason: Pain) Qty: 180 1RF methocarbamol 750 mg tablet 750 mg PO TID metoprolol tartrate 25 mg tablet 25 mg PO BID Qty: 180 0RF cholecalciferol (vitamin D3) 50 mcg (2,000 unit) capsule 50 mcg PO DAILY Qty: 90 0RF losartan 100 mg tablet 100 mg PO DAILY 30 Days Qty: 90 3RF omeprazole 40 mg capsule,delayed release(DR/EC) 40 mg PO DAILY Qty: 90 3RF tramadol 50 mg tablet 50 mg PO BID PRN (Reason: pain) Qty: 14 0RF dextroamphetamine-amphetamine [Adderall] 10 mg tablet 10 mg PO BID 30 Days Qty: 60 0RF Rx Instructions: administer doses at least 4-6 hours apart Emgality Pen 120 mg/mL pen injector 120 mg SUBCUT Q30D Qty: 1 5RF diazepam 10 mg tablet 20 mg PO ONCE PRN (Reason: anxiety) Qty: 2 0RF Rx Instructions: May take 1 hour before testing, if needed take 1 tab 30 mins later. Discharge Orders: Discharge ED (Routine); Ordered 03/25/25 Ordered By: Kayla Armando Referrals: Valerie Madrid MD [Primary Care Provider, Family Practice] Patient Instructions: Low Back Strain (ED), Patient Portal & Girish Instructions Activity Restrictions/Additional Instructions: As we discussed, your x-ray did not show any acute fractures. You may continue your anti-inflammatories and muscle relaxers. You may also try ice and heat. You may follow-up with primary care in 1 to 2 weeks if symptoms are not improving. Print Language: Bahraini Coding Level of Care Code ED Cleaner And Polisher for Urszula Nevarez
--- NOTE | 2025-03-25 13:09 | XR_ITS ---
WS: [id number] Exam: XR lumbar spine 2-3V* [id number] Date/Time of Exam: 03/25/2025 1:21 PM Reason For Exam: fall Comparison 01/31/2011. No acute fracture. Spondylosis noted. Degenerative disc narrowing at L1-2 and L2-3. Posterior elements are intact. XR/XR lumbar spine 2-3V* [id number] IMPRESSION: 1. No fracture or malalignment. Degenerative changes.
[2025-03-25] MEDS: orphenadrine 30 mg/mL Inj 2 mL 60 MG IM (13:53)
[2025-03-25] MEDS: dexamethasone 10 mg/mL INJ IM (13:53)
[2025-03-25] MEDS: ketorolac 60 mg/2 mL INJ IM (13:54)
== END 2025-03-25 14:20 | disposition home or self-care (01) ==
PROVIDERS: Emergency Provider Physician Assistant; PCP Family Medicine
DX: M54.50 Low back pain, unspecified (principal); F17.210 Nicotine dependence, cigarettes, uncomplicated; I10 Essential (primary) hypertension
CPT/HCPCS: 72100; 96372; 99284; J1100; J1885; J2360

== ENCOUNTER → 2025-04-08 08:35 | Outpatient (BNVA) | payer MEDICARE, MEDICAID, SELFPAY | PROVIDERS: PCP Family Medicine; Visit Provider Psychiatry & Neurology Neurology | DX: G43.019 Migraine without aura, intractable, without status migrainosus (principal); M54.81 Occipital neuralgia | CPT/HCPCS: 99212 ==

== ENCOUNTER 2025-04-16 09:01 | Outpatient (CLI) | payer MEDICARE, MEDICAID, SELFPAY ==
--- NOTE | 2025-04-16 09:00 | CT_ITS ---
WS: [id number] CTA HEAD AND NECK TECHNIQUE: Contrast enhanced CTA of the head and neck with coronal and sagittal reformatted images and maximum intensity projection (MIP) images. NASCET criteria utilized. CLINICAL INFORMATION: G43.909 - Migraine, unspecified, not intractable, without... COMPARISON: CT 11/04/2024 DLP: 1206.[address] scans at [facility] use at least one of these dose optimization techniques: automated exposure control; mA and/or kV adjustment per patient size (includes targeted exams where dose is matched to clinical indication); or iterative reconstruction. FINDINGS: No evidence intracranial hemorrhage or mass effect. Tiny chronic lacunar infarct LEFT caudate. RIGHT: No significant RIGHT ICA stenosis. RIGHT ICA is patent to the skull base. LEFT: No significant LEFT ICA stenosis. LEFT ICA is patent to the skull base. INTRACRANIAL CTA: Both vertebral arteries are patent. Basilar artery is patent. Normal vascularity to the TECH[employer]ICAL SALES [employer] territory bilaterally. Both ICAs are patent at the skull base. Normal vascularity to the GARO and MCA territories bilaterally. No evidence of proximal flow-limiting stenosis. Small RIGHT A1 segment. Proximal subclavian arteries are patent. Fibrosis in the lung apices. Paranasal sinuses are well aerated. Mastoid air cells are well aerated. Small thyroid nodules. Posterior projecting LEFT thyroid nodule measuring 1.5 cm. This can be followed up with ultrasound. CT/CT angio headneck* [id number] IMPRESSION: 1. No significant cervical ICA stenosis. 2. Both vertebrals are patent. 3. Normal intracranial MRA. No proximal flow-limiting stenosis.
[2025-04-16] MEDS: iohexol 350 mg/mL 500 mL Btl (per mL) IV (09:39)
== END 2025-04-16 09:02 | disposition home or self-care (01) ==
LOC: RAD 09:02
PROVIDERS: PCP Family Medicine; Visit Provider Psychiatry & Neurology Neurology
DX: G43.909 Migraine, unspecified, not intractable, without status migrainosus (principal); E04.1 Nontoxic single thyroid nodule
CPT/HCPCS: 70496; 70498

== ENCOUNTER 2025-06-10 16:26 | Outpatient (CLI) | payer MEDICARE, MEDICAID, SELFPAY ==
--- NOTE | 2025-06-10 16:33 | XRR_ITS ---
PROCEDURE INFORMATION: Exam: XR Chest Exam date and time: 06/10/2025 4:40 PM Age: 50 years old Clinical indication: Cough x 3 weeks; Additional info: Subacute cough, fever TECHNIQUE: Imaging protocol: Radiologic exam of the chest. Views: 2 views. COMPARISON: CR XR chest 2V* [id number] 10/10/2024 11:53 AM FINDINGS: Lungs: Hyperinflated lungs. Mild linear opacity at the left lung base, favored to represent subsegmental atelectasis. Minimal non consolidative infiltrate would be considered less likely. No consolidative airspace disease. Pleural spaces: No pneumothorax. No significant pleural effusion. Heart/Mediastinum: The cardiac silhouette is normal in size. Bones/joints: There is no acute osseous abnormality. XR/XR chest 2V* [id number] IMPRESSION: Mild linear opacity at the left lung base, favored to represent subsegmental atelectasis. Minimal non consolidative infiltrate would be considered less likely. No consolidative airspace disease.
== END 2025-06-10 16:27 | disposition home or self-care (01) ==
PROVIDERS: PCP Family Medicine; Visit Provider Family Medicine
DX: R05.2 Subacute cough (principal); R50.9 Fever, unspecified; R91.8 Other nonspecific abnormal finding of lung field
CPT/HCPCS: 71046

== ENCOUNTER 2025-07-02 10:08 | Outpatient (CLI) | payer MEDICARE, MEDICAID, SELFPAY ==
--- NOTE | 2025-07-02 10:18 | XR_ITS ---
WS: [id number] XR cervical spine 4-5V [id number] REASON FOR EXAM: CHRONIC NECK PAIN FOR GREATER THAN 3 MONTHS FINDINGS: Mild straightening of the normal lordosis. No cervical vertebral body compression deformity or focal lesion. Intervertebral disc spaces are intact and relatively well preserved. Mild posterior and anterior osteophytosis C4-C7. Degenerative arthropathy in the facet joints C3-C7. XR/XR cervical spine 4-5V [id number] IMPRESSION: Minimal degenerative spondylosis of the cervical spine as above.
== END 2025-07-02 10:09 | disposition home or self-care (01) ==
LOC: RAD 10:11
PROVIDERS: PCP Family Medicine; Visit Provider Family Medicine
DX: M47.892 Other spondylosis, cervical region (principal); M25.78 Osteophyte, vertebrae
CPT/HCPCS: 72050

== ENCOUNTER → 2025-07-16 13:51 | Outpatient (BNVA) | payer MEDICARE, MEDICAID, SELFPAY | PROVIDERS: PCP Family Medicine; Visit Provider Specialist | DX: G43.711 Chronic migraine without aura, intractable, with status migrainosus (principal) | CPT/HCPCS: 96372; 99214 ==

== ENCOUNTER 2025-07-21 09:45 | Outpatient (CLI) | payer MEDICARE, MEDICAID, SELFPAY ==
--- NOTE | 2025-07-21 09:49 | USCV_ITS ---
JamesAugustine polancoa Age: 50 Gender: F : 1975 Exam Date: 07/21/2025 09:57 Ordering Phys: Marley Barraza DO Technologist: DEDE [place] [facility] [place]: [place] leg swelling HISTORY: Lower extremity swelling-RIGHT PROCEDURES: Venous duplex imaging was performed in only the right lower extremity. The following venous structures were evaluated: common femoral vein, profunda vein, proximal portion of the greater saphenous vein, superficial femoral vein, and the popliteal vein. In addition, the posterior tibial and peroneal trunk were evaluated. FINDINGS: Normal 2-D Doppler and augmentation and compressibility throughout the lower extremity venous structures. Additional imaging through the proximal calf veins also reveals no thrombus. Limited evaluation of the greater saphenous vein is patent with no thrombus. CONCLUSIONS No evidence of right lower extremity DVT. Yaron Royal MD (Electronically Signed) Final Date: 21 July 2025 11:01 S
== END 2025-07-21 09:46 | disposition home or self-care (01) ==
LOC: RAD 09:45
PROVIDERS: PCP Family Medicine; Visit Provider Family Medicine
DX: R60.0 Localized edema (principal); M79.604 Pain in right leg
CPT/HCPCS: 93971

== ENCOUNTER → 2025-09-09 14:45 | Outpatient (BNVA) | payer MEDICARE, MEDICAID, SELFPAY | PROVIDERS: PCP Family Medicine; Visit Provider Specialist | DX: G43.711 Chronic migraine without aura, intractable, with status migrainosus (principal) | CPT/HCPCS: 99213 ==